=== PATIENT | female | born 1970 | race Asian ===

== ENCOUNTER → 2019-07-14 19:10 | Outpatient (CLI) | payer OTHER, MEDICAID, SELFPAY ==
--- NOTE | 2019-07-14 | DI.RAD.S_ITS ---
PROCEDURE: XR CHEST 2V INDICATIONS: Positive TB test TECHNIQUE: 2 views of the chest were acquired. COMPARISON: [facility], , CHEST 1 VIEW, 08/15/2017, 0:15. FINDINGS: Surgical changes and devices: None. Lungs and pleura: Lungs are clear. No pleural effusions or pneumothorax. Mediastinum: Mediastinal contours are normal. Heart size is normal. Bones and chest wall: No suspicious bony abnormalities. Soft tissues appear unremarkable. IMPRESSION: Normal for age, no evidence of acute or chronic tuberculosis. Dictated by: Joaquim Lott M.D. on 07/14/2019 at 20:04 Approved by: Joaquim Lott M.D. on 07/14/2019 at 20:05
== END ==
PROVIDERS: Visit Provider Nurse Practitioner Family
DX: R76.11 Nonspecific reaction to tuberculin skin test without active tuberculosis (principal)
CPT/HCPCS: 71046

== ENCOUNTER → 2020-02-05 18:54 | Outpatient (CLI) | payer OTHER, SELFPAY ==
--- NOTE | 2020-02-05 | DI.RAD.S_ITS ---
PROCEDURE: XR WRIST LT MIN 3V INDICATIONS: Wrist Pain, Acute Left TECHNIQUE: 4 views of the wrist were acquired. COMPARISON: None. FINDINGS: Bones: No fractures or dislocations. No suspicious bony lesions. First CMC and triscaphe joint degeneration Soft tissues: No suspicious soft tissue calcifications. IMPRESSION: If the patient's pain or other symptoms persist, consider further evaluation with MRI Dictated by: Bridger Huber M.D. on 02/06/2020 at 8:47 Approved by: Bridger Huber M.D. on 02/06/2020 at 8:58
== END ==
PROVIDERS: PCP Family Medicine; Referring Provider Family Medicine; Visit Provider Family Medicine
DX: M25.532 Pain in left wrist (principal); M18.12 Unilateral primary osteoarthritis of first carpometacarpal joint, left hand
CPT/HCPCS: 73110

== ENCOUNTER → 2020-03-22 19:10 | Outpatient (CLI) | payer OTHER, SELFPAY ==
--- NOTE | 2020-03-22 19:18 | DI.MRI.S_ITS ---
PROCEDURE: MR WRIST LT WO CON INDICATIONS: UNSPECIFIED SPRAIN OF LEFT WRIST TECHNIQUE: Noncontrast coronal proton density fast spin echo and T2 fast spin echo with fat saturation; coronal 3-D gradient echo, axial T1 spin echo and T2 fast spin echo with fat saturation, sagittal T1 spin echo through the wrist. COMPARISON: [facility], CR, XR WRIST LT MIN 3V, 02/05/2020, 18:53. FINDINGS: Image quality: Excellent. Bones and cartilage: The carpal bones are normally aligned. No bone marrow contusions or fractures. No evidence for avascular necrosis. Distal radioulnar joint degeneration, with spurring and sclerosis. Trace joint effusion. There is mild subchondral cystic change in the proximal lunate and partial chondral loss overlying the proximal surface of the lunate. Carpal ligaments: The scapholunate and lunotriquetral ligaments appear intact. In the absence of intra-articular contrast, the extrinsic carpal ligaments are not well identified. On sagittal images, the pisohamate ligament appears intact. Triangular fibrocartilage complex: The triangular fibrocartilage appears intact. The adjacent meniscal homolog appears normal in the absence of intra-articular contrast. The extensor carpi ulnaris tendon is normal in location and morphology. Tendons and soft tissues: There is mild T2 hyperintensity/edema surrounding the index finger slip of the flexor digitorum profundus tendon. There is also mild edema and fluid surrounding the extensor carpi radialis longus tendon. There is also diffuse minimal edema surrounding the extensor digitorum tendon slips The ulnar nerve appears normal within Guyon's canal. No soft tissue ganglion cysts. IMPRESSION: Distal radioulnar joint degeneration, with partial thickness chondral loss overlying the surface of the lunate. Mild tenosynovitis involving the index finger slip of the flexor digitorum profundus, extensor digitorum, and the extensor carpi radialis longus tendons. Dictated by: Bridger Huber M.D. on 03/25/2020 at 9:04 Approved by: Bridger Huber M.D. on 03/25/2020 at 9:20
== END ==
PROVIDERS: Referring Provider Orthopaedic Surgery; Visit Provider Orthopaedic Surgery
DX: S63.502A Unspecified sprain of left wrist, initial encounter (principal); M19.032 Primary osteoarthritis, left wrist; M65.842 Other synovitis and tenosynovitis, left hand; X58.XXXA Exposure to other specified factors, initial encounter
CPT/HCPCS: 73221

== ENCOUNTER → 2020-10-19 14:39 | Outpatient (CLI) | payer OTHER, MEDICAID, SELFPAY ==
--- NOTE | 2020-10-19 14:41 | DI.MG.S_ITS ---
BILATERAL DIGITAL SCREENING MAMMOGRAM 3D/2D WITH CAD: 10/19/2020 CLINICAL: Routine screening. Comparison is made to exams dated: 02/06/2019 mammogram - [facility], 07/02/2016 mammogram, and 06/11/2015 mammogram - [email or web address]. The tissue of both breasts is heterogeneously dense. This may lower the sensitivity of mammography. Current study was also evaluated with a Computer Aided Detection (CAD) system. No significant masses, calcifications, or other findings are seen in either breast. There has been no significant interval change. IMPRESSION: NEGATIVE There is no mammographic evidence of malignancy. A 1 year screening mammogram is recommended. This exam was interpreted at Station ID: [id number]. NOTE: For mammograms, a report in lay terms will be sent to the patient. Approximately 15% of breast malignancies will not be visualized mammographically. In the management of a palpable breast mass, a negative mammogram must not discourage biopsy of a clinically suspicious lesion. Electronically Signed By: Marky figueroa/yoon:10/21/2020 08:43:47 copy to: NABIL GORDILLO letter sent: Normal Exam ACR BI-RADS Category 1: Negative [id number]
== END ==
PROVIDERS: Referring Provider Obstetrics & Gynecology; Visit Provider Obstetrics & Gynecology
DX: Z12.31 Encounter for screening mammogram for malignant neoplasm of breast (principal)
CPT/HCPCS: 77063; 77067

== ENCOUNTER 2023-02-19 04:32 | Emergency (ER) | payer OTHER, SELFPAY ==
[2023-02-19] VITALS (9 sets, daily range): BP systolic 184–247; BP diastolic 84–117; PULSE 80–91; RESP 17–28; TEMP 36.8; O2SAT 96–99; BMI 27.9
--- NOTE | 2023-02-19 04:38 | ED.GENADULT ---
HPI - General Adult General Chief complaint: Extremity Problem,Nontraumatic Stated complaint: lt knee pain Time Seen by Provider: 02/19/23 04:38 History of Present Illness HPI narrative: 52-year-old female with history of diabetes and hypertension is a nonsmoker and presents with a chief complaint of pain behind her left knee and lateral calf over the past day or so. She states it as increasing pain with range of motion and with palpation and with certain motions seems to radiate to her posterior knee. She denies any trauma or injury. She states that she is on her feet for extended periods of time at work but denies any specific injury as noted. She states that she has been having trouble paying for her prescriptions and as a consequence has not been taking her antihypertensives. She is been doing the best she can to take her metformin. She states she has a bit of a headache and at times some blurry vision. She denies chest pain but has some heaviness in her lungs. She states it she feels generally unwell. Related Data Home Medications Medication Instructions Recorded Confirmed metformin 500 mg tablet,extended 500 mg PO BID ##0 08/15/17 02/19/23 release 24 hr (Glucophage XR) telmisartan 40 mg tablet (Micardis) 40 mg PO Q DAY ##0 08/15/17 02/19/23 Previous Rx's Medication Instructions Recorded telmisartan 40 mg tablet (Micardis) 40 mg PO DAILY #30 tabs 02/19/23 Allergies Allergy/AdvReac Type Severity Reaction Status Date / Time No Known Allergies Allergy Uncoded 12/01/17 12:49 Review of Systems Review of Systems Narrative: GENERAL: See HPI HEENT: Denies sinus pain, ear pain, sore throat, difficulty swallowing, dizziness. RESPIRATORY: See HPI CARDIOVASCULAR: See HPI GASTROINTESTINAL: Denies nausea, vomiting, abdominal pain, diarrhea, constipation, melena. : Denies dysuria, frequency, incontinence, hematuria, urinary retention. MUSCULOSKELETAL: See HPI SKIN: Denies rash, skin lesions, or other NEUROLOGIC: Denies weakness, headache, numbness, change in speech, confusion, seizures, incoordination. PSYCHIATRIC: No concerning psychosocial issues. 12 point review of systems is negative except for those stated above Exam Narrative Exam Narrative: GENERAL: [52] year old patient appears stated age. Well-developed patient, in mild distress. HEAD: Atraumatic. Normocephalic. EYES: Pupils equal round and reactive. Extraocular motions intact. No scleral icterus. No injection or drainage. ENT: Nose without bleeding, purulent drainage. Throat without erythema, tonsillar hypertrophy or exudate. Airway patent. NECK: Trachea midline. Non tender CARDIOVASCULAR: Regular rate and rhythm without murmurs, gallops, or rubs. RESPIRATORY: Clear to auscultation. Breath sounds equal bilaterally. No wheezes, rales, or rhonchi. GASTROINTESTINAL: Abdomen soft, non-tender, nondistended. EXTREMITIES: 1+ pitting edema bilateral lower extremities. No obvious effusion or ligamentous laxity of left knee but there is some pain in the popliteal fossa. Some pain with calf squeeze but no obvious swelling, erythema, warmth BACK: Nontender without deformity or crepitance. No flank tenderness. NEURO: AOx3. SKIN: No rash or erythema of visible areas Initial Vital Signs Initial Vital Signs: Vital Signs Temperature 98.2 F 02/19/23 04:45 Pulse Rate 85 02/19/23 04:45 Respiratory Rate 18 02/19/23 04:45 Blood Pressure 247/117 H 02/19/23 04:45 Pulse Oximetry 97 02/19/23 04:45 Oxygen Delivery Method Room Air 02/19/23 04:45 Course Orders Ordered: Discontinued Medications Losartan Potassium (Losartan 50 Mg Tablet) 50 mg PO NOW ONE Stop: 02/19/23 06:23 Last Admin: 02/19/23 06:43 Dose: 50 mg Documented By: JUANI Vital Signs Vital signs: Vital Signs - 8 hr 02/19/23 04:45 02/19/23 05:05 02/19/23 05:06 Temperature 98.2 F Pulse Rate 85 89 91 H Respiratory Rate 18 Blood Pressure 247/117 H Pulse Oximetry 97 97 97 Oxygen Delivery Method Room Air 02/19/23 05:30 02/19/23 05:31 02/19/23 05:31 Temperature Pulse Rate 85 84 Respiratory Rate 21 17 Blood Pressure 189/84 H Pulse Oximetry 97 98 Oxygen Delivery Method 02/19/23 05:33 02/19/23 05:33 02/19/23 06:00 Temperature Pulse Rate 84 83 Respiratory Rate 25 H 28 H Blood Pressure 191/93 H Pulse Oximetry 99 98 Oxygen Delivery Method 02/19/23 06:23 02/19/23 06:23 02/19/23 06:30 Temperature Pulse Rate 80 Respiratory Rate 26 H Blood Pressure 207/103 H 184/101 H Pulse Oximetry 96 Oxygen Delivery Method 02/19/23 06:30 Temperature Pulse Rate 85 Respiratory Rate 23 Blood Pressure Pulse Oximetry 97 Oxygen Delivery Method Medical Decision Making Lab Data 02/19/23 05:26 02/19/23 05:26 Labs: Lab Results 02/19/23 02/19/23 02/19/23 Range/Units 05:26 05:26 05:26 WBC 7.7 (4.5-11.0) X10^3/uL RBC 4.64 (4.0-5.2) X10^6/uL Hgb 12.6 (12.0-16.0) g/dL Hct 37.3 (36-46) % MCV 80.4 (80-100) fL MCH 27.1 (26-34) PG MCHC 33.7 (30-36) % RDW 17.4 H (11.6-14.8) % Plt Count 264 (150-400) X10^3/uL Neut % (Auto) 46.4 L (50-75) % Lymph % (Auto) 38.2 (25-40) % [place] % (Auto) 12.0 (3-14) % Eos % (Auto) 2.5 (2-4) % Baso % (Auto) 0.9 (0-2) % Neut # (Auto) 3500 (4132-8624) /uL Lymph # (Auto) 2900 (6238-2234) /uL [place] # (Auto) 900 (0-900) /uL Eos # (Auto) 200 (0-450) /uL Baso # (Auto) 100 (0-100) /uL RBC Morphology Normal morphology Sodium 135 L (137-145) mmol/L Potassium 3.4 (3.4-5.1) mmol/L Chloride 98 (98-107) mmol/L Carbon Dioxide 30 (22-32) mmol/L BUN 12 (7-17) mg/dL Creatinine 0.49 L (0.52-1.04) mg/dL Estimated GFR > 60 (>60) mL/min BUN/Creatinine Ratio 24.5 H (6-22) Glucose 113 H (70-100) mg/dL Calcium 8.4 (8.4-10.2) mg/dL Total Bilirubin 0.5 (0.2-1.3) mg/dL AST 28 (14-36) IU/L ALT 23 (<35) IU/L Alkaline Phosphatase 66 (38-126) U/L Total Creatine Kinase 111 (30-135) U/L Troponin I < 0.012 (0.01-0.034) ng/mL NT-Pro-B Natriuret Pep 52 (<125) pg/mL Total Protein 7.7 (6.3-8.2) g/dL Albumin 4.2 (3.5-5.0) g/dL Globulin 3.5 (1.7-4.1) g/dL Albumin/Globulin Ratio 1.2 (1.0-2.8) Lipase 40 (23-300) U/L Urine Dip Bedside Urine Glucose Negative Bedside Urine Bilirubin - Negative Bedside Urine Ketone - Negative Urine Specific [place] 1.015 Bedside Urine Occult Blood - Negative Bedside Urine pH 6.0 Bedside Urine Protein - Negative Bedside Urine Urobilinogen - Negative Bedside Urine Nitrite - Negative Bedside Urine Leukocytes - Negative Esterase Point of care testing: Urine Dip Bedside Urine Glucose Negative Bedside Urine Bilirubin - Negative Bedside Urine Ketone - Negative Urine Specific [place] 1.015 Bedside Urine Occult Blood - Negative Bedside Urine pH 6.0 Bedside Urine Protein - Negative Bedside Urine Urobilinogen - Negative Bedside Urine Nitrite - Negative Bedside Urine Leukocytes - Negative Esterase ECG Data Interpretation: [0518] EKG is normal sinus rhythm rate [88 ] and free of any signs of ischemia or ectopy. No ST segmental elevation or depression. No T wave inversions MDM Narrative Medical decision making narrative: [52] year old patient presents with nontraumatic pain to left lateral knee and hypertension Multiple etiologies for patient's symptoms considered including, but not limited to: [Sprain versus arthritis versus DVT versus [place] cyst versus other] Prior Charts reviewed in our EMR Primary Historian: patient Labs reviewed and interpreted by myself: NO significant findings Imaging reviewed: CXR without acute findings Patient's symptoms improved over duration of stay with above-stated therapies. Findings and discharge diagnosis discussed with patient/family followed by verbalization of understanding Return precautions discussed with patient/family whom verbalize understanding of diagnosis and plan Discharge Plan Departure Patient Disposition: Home Clinical Impression: HTN (hypertension), Acute pain of left knee Instructions: High Blood Pressure Activity Restrictions/Additional Instructions: *You have been diagnosed with [hypertension and left knee pain. As we discussed your history and physical exam are reassuring. The x-ray and ultrasound are both absent of any significant findings that would require a specific intervention] *What to do: *Please continue to take your regular medications as directed. [x ] New medication prescriptions sent to your pharmacy: [[facility]] [ ] New medication written as a paper prescription [ ] No new medications given *Please follow up with your primary care provider in 2-3 days, call for an appointment. Let them know you were seen in the Emergency Department and that we ask that you be seen in follow up. We will electronically transmit a record of today's note if your PCP is in our system *If you do not have a primary care provider please contact the [facility] Resource line at [phone]. They will ask some questions about your medical history and help get you set up with a doctor in the community. *Return to Emergency Department if you should have any new, worsening or concerning symptoms, such as [fever greater than 101 F, shaking chills, worsening pain, persistent vomiting or other bothersome symptoms] Prescriptions: New telmisartan [Micardis] 40 mg tablet 40 mg PO DAILY Qty: 30 0RF No Action telmisartan [Micardis] 40 MG tablet 40 mg PO Q DAY Qty: 0 Patient Comments: pt has been unable to obtain medication so she has not taken in >1 mon metformin [Glucophage XR] 500 MG tablet extended release 24 hr 500 mg PO BID Qty: 0 Stand Alone Forms: Patient Portal/API
--- NOTE | 2023-02-19 04:52 | DI.RAD.S_ITS ---
PROCEDURE: XR KNEE LT 3V INDICATIONS: pain, unknown injury TECHNIQUE: 3 views of the knee were acquired. COMPARISON: None. FINDINGS: Bones: No fractures or dislocations. No suspicious bony lesions. Soft tissues: Trace joint effusion. No suspicious soft tissue calcifications. IMPRESSION: No acute osseous abnormality. MRI could be considered for follow-up evaluation. This report is concordant with the overnight preliminary interpretation. Dictated by: Leo Gaviria M.D. on 02/19/2023 at 8:16 Approved by: Leo Gaviria M.D. on 02/19/2023 at 8:17
--- NOTE | 2023-02-19 04:52 | DI.US.S_ITS ---
PROCEDURE: US PERIPH VENOUS LOW EXTREM LT INDICATIONS: KNEE PAIN, SWELLING TECHNIQUE: Real-time imaging, as well as color and pulse Doppler interrogation, were performed of the lower extremity deep veins from the inguinal ligament to the popliteal fossa. COMPARISON: None. FINDINGS: The common femoral, femoral and popliteal veins are normally compressible, and free of intraluminal thrombus. Color and pulse Doppler demonstrate normal phasic intraluminal flow. There is normal augmentation response to distal compression maneuver. IMPRESSION: No deep vein thrombosis of the left lower extremity. Dictated by: Karen Omer M.D. on 02/19/2023 at 8:11 Approved by: Karen Omer M.D. on 02/19/2023 at 8:11
--- NOTE | 2023-02-19 04:58 | DI.RAD.S_ITS ---
PROCEDURE: XR CHEST 1V INDICATIONS: SOB TECHNIQUE: One view of the chest was acquired. COMPARISON: [facility], , CHEST 1 VIEW, 08/15/2017, 0:15. FINDINGS: Surgical changes and devices: None. Lungs and pleura: Lungs are clear. No pleural effusions or pneumothorax. Mediastinum: Mediastinal contours appear unchanged. Heart size is normal. Bones and chest wall: No suspicious bony lesions. Overlying soft tissues appear unremarkable. IMPRESSION: No acute cardiopulmonary abnormality. This report is concordant with the overnight preliminary interpretation. Dictated by: Leo Gaviria M.D. on 02/19/2023 at 8:15 Approved by: Leo Gaviria M.D. on 02/19/2023 at 8:16
[2023-02-19 05:39] LABS: Basophils Absolute Auto 100 /uL (0-100); Basophils Percent Auto 0.9 % (0-2); Eosinophils Absolute Auto 200 /uL (0-450); Eosinophils Percent Auto 2.5 % (2-4); Hematocrit 37.3 % (36-46); Hemoglobin 12.6 g/dL (12.0-16.0); Lymphocytes Absolute Auto 2900 /uL (1100-4500); Lymphocytes Percent Auto 38.2 % (25-40); Mean Corpuscular HGB Conc 33.7 % (30-36); Mean Corpuscular Hemoglobin 27.1 PG (26-34); Mean Corpuscular Volume 80.4 fL (80-100); Monocytes Absolute Auto 900 /uL (0-900); Neutrophils Absolute Auto 3500 /uL (1500-7000); Neutrophils Percent Auto 46.4 % (50-75); Platelet Count 264 X10^3/uL (150-400); Red Blood Cell Count 4.64 X10^6/uL (4.0-5.2); Red Cell Distribution Width 17.4 % (11.6-14.8); White Blood Cell Count 7.7 X10^3/uL (4.5-11.0)
[2023-02-19 05:44] LABS: Alanine Aminotransferase 23 IU/L (<35); Albumin 4.2 g/dL (3.5-5.0); Albumin Globulin Ratio 1.2 (1.0-2.8); Alkaline Phosphatase 66 U/L (38-126); Aspartate Aminotransferase 28 IU/L (14-36); BUN Creatinine Ratio 24.5 (6-22); Bilirubin Total 0.5 mg/dL (0.2-1.3); Blood Urea Nitrogen 12 mg/dL (7-17); Calcium 8.4 mg/dL (8.4-10.2); Carbon Dioxide 30 mmol/L (22-32); Chloride 98 mmol/L (98-107); Creatine Kinase 111 U/L (30-135); Estimated Glomerular Filt Rate > 60 mL/min (>60); Globulin 3.5 g/dL (1.7-4.1); Glucose 113 mg/dL (70-100); HEMOLYSIS 30 (0-50); Lipase 40 U/L (23-300); Potassium 3.4 mmol/L (3.4-5.1); Sodium 135 mmol/L (137-145); Total Protein 7.7 g/dL (6.3-8.2)
[2023-02-19 05:45] LABS: Add Manual Diff / Slide Review SLIDE REVIEW
[2023-02-19 05:53] LABS: NT-proBNP (BNP-Adult 18+) 52 pg/mL (<125)
[2023-02-19 05:56] LABS: Troponin I < 0.012 ng/mL (0.01-0.034)
[2023-02-19 06:41] LABS: RBC Morphology Normal Morphology
[2023-02-19] MEDS: LOSARTAN 50 MG TABLET PO (06:43)
== END 2023-02-19 06:58 | disposition home or self-care (01) ==
PROVIDERS: Emergency Provider Emergency Medicine
DX: I10 Essential (primary) hypertension (principal); M25.562 Pain in left knee
CPT/HCPCS: 36415; 71045; 73562; 80053; 81003; 82550; 83690; 83880; 84484; 85025; 93005; 93010; 93971; 99284